=== PATIENT | male | born 2000 | race Caucasian/White ===

== ENCOUNTER 2022-03-12 12:23 | Emergency (ER) | payer SELFPAY ==
[~2022-03-12] VITALS: Ht 180.3 cm; Wt 70.5 kg
[~2022-03-12 12:23] MED LIST: VYVANSE10 MG PO
[2022-03-12 12:39] VITALS: TEMP 98
[2022-03-12] MEDS ORDERED: VYVANSE40 MG PO (14:00)
[2022-03-12 14:29] VITALS: BP 132/85; PULSE 80
== END 2022-03-12 14:38 | disposition home or self-care (01) ==
LOC: COL.ER 12:23
DX: S43.014A Anterior dislocation of right humerus, initial encounter (principal); X58.XXXA Exposure to other specified factors, initial encounter; Y92.321 Football field as the place of occurrence of the external cause; Y93.61 Activity, american tackle football
CPT/HCPCS: J2704; J3010; J7030